=== PATIENT | female | born 1995 | race Caucasian/White ===

== ENCOUNTER 2022-09-12 03:22 | Emergency (ER) | payer OTHER ==
[2022-09-12] MEDS ORDERED: Sodium Chloride 0.9% 1,000 ML IV ONE (03:40)
[2022-09-12] MEDS ORDERED: Morphine 4 MG/ML VIAL IVPUSH ONE (04:45)
[2022-09-12] MEDS ORDERED: LORazepam 2 MG/ML SDV IVPUSH ONE (04:45)
[2022-09-12 06:17] LABS: ESTIMATED GFR 80 mL/min (>60)
[2022-09-12] MEDS ORDERED: Sodium Chloride 0.9% 10 ML Syringe FLUSH PRN (06:47)
== END 2022-09-12 05:15 ==
LOC: FB.ED 03:22
DX: S14.109A Unspecified injury at unspecified level of cervical spinal cord, initial encounter (principal); G80.9 Cerebral palsy, unspecified; V49.40XA Driver injured in collision with unspecified motor vehicles in traffic accident, initial encounter; Y92.410 Unspecified street and highway as the place of occurrence of the external cause
CPT/HCPCS: 36415; 51702; 70450; 71250; 72125; 72128; 72131; 74176; 80053; 80307; 81001; 85025; 85610; 85730; 96361; 96374; 96375; 99285; J2060; J2270; J3490; J7030